=== PATIENT | female | born 1995 | race American Indian/Alaskan Native ===

== ENCOUNTER 2022-12-24 10:27 | Emergency (ER) | payer BC | END 2022-12-24 11:21 | disposition home or self-care (01) | LOC: CSHERS 10:27 | DX: S06.9X1A Unspecified intracranial injury with loss of consciousness of 30 minutes or less, initial encounter (principal); E03.9 Hypothyroidism, unspecified; W18.30XA Fall on same level, unspecified, initial encounter | CPT/HCPCS: 36416 ==